=== PATIENT | female | born 1980 | race African-American/Black ===

== ENCOUNTER 2020-08-27 15:09 | Emergency (ER) | payer OTHER ==
[~2020-08-27] VITALS: Ht 167.6 cm; Wt 81.6 kg
[~2020-08-27 15:09] MED LIST: AMLO10TA PO; DESM0.2T2 PO
[2020-08-27 15:13] VITALS: BP 174/126
[2020-08-27] MEDS ORDERED: predniSONE 20 MG TAB PO ONE (15:35)
[2020-08-27 15:56] VITALS: BP 163/96
--- NOTE | 2020-08-27 16:01 | NUR ---
Patient discharged with v/s stable. Written and verbal after care instructions given and explained. Patient alert, oriented and verbalized understanding of instructions. Ambulatory with steady gait. All questions addressed prior to discharge. ID band removed. Patient advised to follow up with PMD. Rx of FAMOTIDINE, HYDROXYZINE given. Patient educated on indication of medication including possible reaction and side effects. Opportunity to ask questions provided and answered.
== END 2020-08-27 16:01 | disposition home or self-care (01) ==
LOC: MED 15:09
DX: L50.3 Dermatographic urticaria (principal); I10 Essential (primary) hypertension; E23.2 Diabetes insipidus; Z85.841 Personal history of malignant neoplasm of brain
CPT/HCPCS: 99283; J7512; Q0163